=== PATIENT | male | born 1960 | race African-American/Black ===

== ENCOUNTER 2019-01-16 07:35 | Inpatient (IN) ==
[2019-01-16] MEDS ORDERED: ROCEPHIN 1 GM in NS 50 ML IV ONE (08:24)
[2019-01-16] MEDS ORDERED: VANCOMYCIN 1 GM/NS 1 GM/250 ML IVPB IV ONE (08:24)
--- NOTE | 2019-01-16 08:31 | PROVIDER DOCUMENTATION ---
HPI-Rash/Wound/ReCheck - General Chief Complaint: Rash Stated Complaint: RASH Time Seen by Provider: 01/16/19 08:19 Allergies/Adverse Reactions: Allergies Allergy/AdvReac Type Severity Reaction Status Date / Time Penicillins Allergy ANAPHYLAXIS Verified 01/16/19 07:51 Home Medications: Home Medication List Medication Instructions Recorded Confirmed Last Taken Type Sulfamethoxazole/Trimethoprim 2 ea PO BID #40 tab 01/13/19 01/16/19 01/16/19 Rx [Bactrim Ds Tablet] Albuterol Sulfate Inhaler 2 puff INH PRN PRN 01/16/19 01/16/19 01/16/19 History [Ventolin Hfa] - History of Present Illness-Dermatology Nature of Presenting Problem: had abscess in R axill drained sev weeks ago, has had some swelling, redness since, but much worse since , when seen here, got shot of clindamycin. No fever known, no other probles, except alena, redness, swelling to R arm, beginning to R mid upper arm, down to mid R forearm. Review of Systems - Adult - REVIEW OF SYSTEMS - ADULT Constitutional: reports: no symptoms reported Eyes: reports: no symptoms reported Ears, Nose, Mouth & Throat: reports: no symptoms reported Cardiovascular: reports: no symptoms reported Respiratory: reports: no symptoms reported Gastrointestinal: reports: nausea, vomiting Genitourinary: reports: no symptoms reported Musculoskeletal: reports: no symptoms reported Integumentary: reports: see HPI Neurological: reports: no symptoms reported Psychiatric: reports: no symptoms reported Endocrine: reports: no symptoms reported Hematologic/Lymphatic: reports: no symptoms reported Allergic/Immunologic: reports: no symptoms reported Past History - Adult - PAST MEDICAL HISTORY-ADULT Review of Records: reports: Medications Reviewed Major Childhood Illnesses: reports: denies history Cardiovascular: reports: HTN Respiratory: reports: COPD Gastrointestinal: reports: denies history Obstetrical/Gynecological: reports: denies history Genitourinary: reports: denies history Musculoskeletal: reports: denies history Neurological: reports: denies history Psychiatric: reports: denies history Endocrine/Immune: reports: denies history. denies: Diabetes Other Conditions: reports: denies history - PRIOR SURGERIES/PROCEDURES Surgical/Procedure History: reports: none - PRIOR HOSPITALIZATIONS Prior Hospitalizations: reports: none - IMMUNIZATION STATUS Childhood Immunizations: See Nurse Assessment Flu Vaccine: See Nurse Assessment - FAMILY HISTORY Family History: reviewed, not pertinent Physical Exam-General - PHYSICAL EXAM-ADULT Initial Vital Signs Reviewed: Yes - CONSTITUTIONAL General Appearance: appears well, alert, no apparent distress - EYES Eyes: PERRL/EOMI, pink conjunctivae - HEAD, EARS, NOSE, MOUTH & THROAT HENMT: normocephalic/atraumatic, moist mucous membranes, normal ENT inspection, pharynx normal - NECK Neck: non-tender, full range of motion, supple - RESPIRATORY Respiratory: chest non-tender, lungs clear, normal breath sounds, no pleuratic chest pain, no respiratory distress, no accessory muscle use - CARDIOVASCULAR Cardiovascular: regular rate, rhythm, no edema, no gallop - GASTROINTESTINAL (ABDOMEN) Abdominal Exam: soft, tenderness (mild epigastrum) - MUSCULOSKELETAL Back Exam: normal inspection, no CVA tenderness, no vertebral tenderness Extremity: other (erythema, swelling tender from mid upper arm, to mid frorearm. sev areas feel fluctuant) - SKIN Integumentary: normal color, normal turgor, warm/dry - NEUROLOGIC Neurologic: cell tester II-XII nml as tested, grossly normal, no motor/sensory deficits - PSYCHIATRIC Psych/Mental Status: normal mood/affect, normal thought content, normal thought process, oriented x 3 Progress - PLAN OF CARE/RESULTS Progress/Plan/Lab Results: Vital Signs - 8 hr 01/16/19 07:36 01/16/19 09:24 01/16/19 09:25 Temperature 97.6 F Pulse Rate 86 98 H 97 H Respiratory Rate 16 20 21 Blood Pressure 117/77 118/88 118/88 O2 Sat by Pulse Oximetry 98 99 99 01/16/19 09:30 01/16/19 09:45 01/16/19 10:00 Temperature Pulse Rate 94 H 97 H 97 H Respiratory Rate 19 17 19 Blood Pressure O2 Sat by Pulse Oximetry 98 100 100 01/16/19 10:15 Temperature Pulse Rate 99 H Respiratory Rate 34 H Blood Pressure O2 Sat by Pulse Oximetry 100 Laboratory Results - last 24 hr 01/16/19 01/16/19 08:35 08:35 WBC 21.23 H RBC 4.93 Hgb 14.3 Hct 39.7 L MCV 80.5 L MCH 29.0 MCHC 36.0 RDW Std Deviation 13.6 Plt Count 70 L MPV 11.1 H Immature Gran % (Auto) 11.0 H Neut % (Auto) 68.2 Lymph % (Auto) 6.0 L Emmet % (Auto) 13.7 H Eos % (Auto) 0.8 Baso % (Auto) 0.3 Immature Gran # (Auto) 2.33 H Neut # (Auto) 14.49 H Lymph # (Auto) 1.28 Emmet # (Auto) 2.90 H Eos # (Auto) 0.17 Baso # (Auto) 0.06 Sodium 135 L Potassium 4.4 Chloride 95 L Carbon Dioxide 24 L Anion Gap 16 BUN 25 H Creatinine 1.4 H Estimated GFR/1.73 m2 > 60 BUN/Creatinine Ratio 18 Glucose 119 H Calculated Osmolality 276 Calcium 9.5 Orders Category Date Time Status US NON VASC EXTREMITY LIMITED [US] Stat Exams 01/16/19 08:23 Completed BASIC METABOLIC PANEL [CHEM] Stat Lab 01/16/19 08:35 Completed CBC WITH DIFF [HEME] Stat Lab 01/16/19 08:35 Results 0.9% Sodium Chloride Inj [Ns] 1,000 ml Med 01/16/19 10:31 Active IV 999 mls/hr CefTRIAXONE [Rocephin] 1 gm Med 01/16/19 08:24 Discontinued 0.9% Sodium Chloride Inj [Ns] 50 ml IV NOW Vancomycin 1 gm/Ns Med 01/16/19 08:24 Discontinued 1 gm in 250 ml IV NOW Result Diagrams: 01/16/19 08:35 01/16/19 08:35 - CONSULTS/PCP/HOSPITALIST Notification #1 *Consult/PCP/Hospitalist*: [place] Time Discussed: 10:30 Consult Disposition: Will see in ED, Admit Departure - Departure Date of Disposition Decision: 01/16/19 Time of Disposition Decision: 10:30 DIAGNOSIS: Cellulitis of left arm, AUGUSTA (acute kidney injury) Disposition: ADMITTED INPATIENT 09 Certified Medical Emergency: Emergent Condition: Good Referrals and Follow-Ups: None,PCP [Primary Care Provider] - - Critical Care Note This patient required my direct & personal management of CC.: No Attestation - Physician/ JOSE Attestation Patient care was provided by Advanced Practice Provider:: No The physician spent face to face time with patient:: Yes Advanced Practice Provider documentation review:: Supervising physician onsite and consulted in the evaluation and care of this patient. The physician did have a face to face encounter with the patient.
[2019-01-16 09:26] LABS: AGAP 16; BUN 25 mg/dL (8-22); CALCIUM 9.5 mg/dL (8.8-10.2); CHLORIDE 95 mmol/L (98-107); COSMO 276; CREATININE 1.4 mg/dL (0.7-1.2); ESTIMATED GFR > 60; GLUCOSE 119 mg/dL (70-104); POTASSIUM 4.4 mmol/L (3.5-5.1); SODIUM 135 mmol/L (136-145); TCO2 24 mmol/L (25-35)
[2019-01-16 09:30] LABS: BASO# 0.06 X1000 (0.0-0.2); BASO% 0.3 % (0.0-0.8); EOS# 0.17 X1000 (0.0-0.7); EOS% 0.8 % (0.0-10.0); HEMATOCRIT 39.7 % (42.0-52.0); HEMOGLOBIN 14.3 g/dL (14.0-18.0); IMM GRAN# 2.33 X1000 (0.0-0.04); LYMPH# 1.28 X1000 (1.2-3.4); MCV 80.5 FL (81-99); MONO% 13.7 % (1.7-9.3); MPV 11.1 FL (7.4-10.4); NEUT# 14.49 X1000 (1.4-6.5); NEUT% 68.2 % (42.2-75.2); PLT 70 X1000 (130-400); RBC 4.93 XMIL (4.7-6.1); RDW 13.6 % (11.5-14.5); WBC 21.23 X1000 (4.8-10.8)
--- NOTE | 2019-01-16 10:23 | Diag Imaging Result Doc PS360 ---
EXAM: US NON VASC EXTREMITY LIMITED INDICATION: poss abscess TECHNIQUE: COMPARISON: None. FINDINGS: No loculated soft tissue fluid collection is identified to indicate an abscess involving the left arm. No solid masses are identified. There is a filling defect identified in the left basilic vein extending from the armpit the forearm indicating thrombus. IMPRESSION: Superficial thrombus in the left basilic vein. No sonographic evidence of abscess. Electronically signed by Yehuda Ramos 01/16/2019 10:21 AM
[2019-01-16] MEDS ORDERED: NS 1,000 ML IV ONE (10:31)
[2019-01-16 11:06] LABS: BANDS 19 % (0-1); LYMPHS 1 % (21-51); MONO 14 % (1-9); SEGS 61 % (42-75)
[2019-01-16] MEDS ORDERED: CLINDAMYCIN 600 MG/NS 600 MG/50 ML IVPB IV SCH (14:13)
[2019-01-16] MEDS ORDERED: ZOFRAN IV PRN (14:13)
[2019-01-16] MEDS ORDERED: NS 1,000 ML IV SCH (14:13)
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
[2019-01-16] MEDS ORDERED: LEVAQUIN 500 MG/D5W 500 MG/100 ML IVPB IV ONE (15:10)
[2019-01-16] MEDS: NICODERM PATCH TD SCH (15:19)
[2019-01-16 15:42] LABS: INR 1.07; PTT 28.3 Seconds (22.3-41.8)
--- NOTE | 2019-01-16 15:58 | Diag Imaging Result Doc PS360 ---
EXAM: CHEST-1 VIEW INDICATION: sepsis protocol TECHNIQUE: One view COMPARISON: 05/13/2018 FINDINGS: There is evidence of prior granulomatous disease, stable. The lungs are grossly clear. There is no discrete pleural fluid collection or pneumothorax. The cardiomediastinal silhouette and central vasculature are grossly unremarkable. IMPRESSION: No evidence of acute pathology by plain radiograph. Electronically signed by Yehuda Ramos 01/16/2019 3:56 PM
[2019-01-16] MEDS: TYLENOL PO PRN (16:22)
[2019-01-16 18:17] LABS: URINE SOURCE CLEAN CATCH
[2019-01-16 18:21] LABS: BILIRUBIN URINE SMALL (NEGATIVE); BLOOD URINE NEGATIVE (NEGATIVE); COLOR YELLOW; GLUCOSE URINE NEGATIVE (NEGATIVE); KETONE URINE NEGATIVE (NEGATIVE); LEUKOCYTES URINE NEGATIVE (NEGATIVE); NITRITE URINE NEGATIVE (NEGATIVE); PH URINE 6.5; PROTEIN URINE 70 mg/dL (NEGATIVE); SP GRAVITY URINE 1.036; TURBIDITY URINE CLEAR (CLEAR); UROBILINOGEN URINE 12 mg/dL (NORMAL)
[2019-01-16 18:23] LABS: UR EPITHELIAL CELLS <10 /HPF (<10); URINE BACTERIA NEGATIVE /HPF; URINE RBC <10 /HPF (<10); URINE WBC <10 /HPF (<10)
[2019-01-16] MEDS ORDERED: MORPHINE IV PRN ×2 (18:33→21:50)
[2019-01-16] MEDS: NORCO-7.5 PO PRN (18:54)
[2019-01-16] MEDS ORDERED: DIPRIVAN 1% ONE (20:23)
[2019-01-16] MEDS ORDERED: ROBINUL ONE (20:23)
[2019-01-16] MEDS ORDERED: XYLOCAINE-MPF 2% ONE (20:23)
[2019-01-16] MEDS ORDERED: GENTAMICIN ONE (20:28)
[2019-01-16] MEDS ORDERED: ZOFRAN ONE (20:47)
[2019-01-16] MEDS ORDERED: OFIRMEV 1000 MG/ISOTONIC SOLN 1,000 MG/100 ML BOTTLE ONE (20:47)
[2019-01-16] MEDS ORDERED: TORADOL ONE (20:47)
[2019-01-16] MEDS ORDERED: NEOSPORIN OINTMENT PACKET ONE (20:57)
--- NOTE | 2019-01-16 21:30 | Diag Imaging Result Doc PS360 ---
EXAM: ELBOW 2 VIEWS LEFT INDICATION: possible left elbow septic arthritis TECHNIQUE: 2 views COMPARISON: None. FINDINGS: There is no discrete fracture, dislocation, or significant intrinsic osseous lesion. No discrete bony erosion is appreciated. The visualized joint spaces are essentially unremarkable. There is soft tissue edema around the elbow. There is no evidence of joint effusion. IMPRESSION: Soft tissue edema but no evidence of acute osseous abnormality and no discrete joint effusion. Electronically signed by Yehuda Ramos 01/16/2019 9:28 PM
[2019-01-16] MEDS ORDERED: OXY IR PO PRN (21:49)
[2019-01-16] MEDS ORDERED: VANCOMYCIN 1 GM/NS 1 GM/250 ML IVPB IV SCH (22:00)
[2019-01-16] MEDS ORDERED: VANCOMYCIN IV PER PHARMACY MISC SCH (22:00)
[2019-01-16] MEDS ORDERED: LR 1,000 ML IV SCH (22:00)
--- NOTE | 2019-01-16 22:26 | OPERATIVE NOTE ---
PROCEDURE DATE: 01/16/2019 POSTOPERATIVE DIAGNOSIS: Left elbow and arm cellulitis with possible elbow joint infection and bursa infection. POSTOP DIAGNOSIS: Left elbow and arm cellulitis with possible elbow joint infection and bursa infection PROCEDURE: Irrigation and debridement of left elbow joint and left elbow bursa. ANESTHESIA: General. SURGEON: Juno Jay MD. JAZZ MUSICIAN: None. COMPLICATIONS: None. BLOOD LOSS: Minimal. DESCRIPTION OF PROCEDURE: Patient brought to the operative suite and placed in the supine position. After successful administration general anesthesia, incision was made overlying the lateral soft spot of the elbow dissected sharply through skin and bluntly down to the elbow joint. Once we were sure we were in the joint, there was some joint fluid there but did not appear to be frankly purulent. It was washed copiously with normal saline containing irrigant and Vashe irrigation then the incision was closed with interrupted nylon suture. Another longitudinal incision was made overlying the bursa. There was some fluid in the bursa as well but again did not appear to be overtly purulent. There was some skin slough superficially which is commonly seen with bursal infections. The bursa was copiously irrigated with normal saline containing irrigant and Vashe irrigation then it was closed with interrupted nylon suture. Sterile compressive dressing was applied. The patient tolerated the procedure well without complications. The end of the procedure all counts correct. The patient was transferred to the recovery room in stable condition. cc: Juno Jay MD
[2019-01-16] MEDS ORDERED: PNEUMOVAX 23 IM ONE (22:57)
[2019-01-16] MEDS ORDERED: VENTOLIN HFA INH PRN (23:30)
[2019-01-17] MEDS: NORCO-7.5 PO PRN (02:46)
[2019-01-17 06:37] LABS: BASO# 0.02 X1000 (0.0-0.2); BASO% 0.1 % (0.0-0.8); EOS# 0.24 X1000 (0.0-0.7); EOS% 1.6 % (0.0-10.0); HEMATOCRIT 33.4 % (42.0-52.0); HEMOGLOBIN 11.8 g/dL (14.0-18.0); IMM GRAN# 0.07 X1000 (0.0-0.04); IMM GRAN% 0.5 % (0.0-0.5); LYMPH# 0.94 X1000 (1.2-3.4); LYMPH% 6.2 % (20.5-51.1); MCH 28.6 PG (27-31); MCHC 35.3 g/dL (33-37); MCV 80.9 FL (81-99); MONO# 1.12 X1000 (0.11-0.59); MONO% 7.4 % (1.7-9.3); MPV 11.2 FL (7.4-10.4); NEUT# 12.68 X1000 (1.4-6.5); NEUT% 84.2 % (42.2-75.2); PLT 70 X1000 (130-400); RBC 4.13 XMIL (4.7-6.1); RDW 13.4 % (11.5-14.5); WBC 15.07 X1000 (4.8-10.8)
[2019-01-17 06:46] LABS: CREATININE 1.6 mg/dL (0.7-1.2); POTASSIUM 3.6 mmol/L (3.5-5.1)
[2019-01-17 07:42] LABS: BANDS 22 % (0-1); EOS 4 % (1-10); HYPOCHROM 1+; LARGE PLATELETS 1+; LYMPHS 8 % (21-51); MONO 4 % (1-9); SEGS 62 % (42-75)
[2019-01-17] MEDS ORDERED: LEVAQUIN 500 MG/D5W 500 MG/100 ML IVPB IV SCH (09:00)
[2019-01-17] MEDS: NICODERM PATCH TD SCH (09:03)
[2019-01-17] MEDS: PEPCID PO SCH (09:03)
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
--- NOTE | 2019-01-17 09:44 | HISTORY AND PHYSICAL ---
ADDENDUM I have seen and examined Mr. Azevedo today. Mr. Azevedo presents because of swelling to his left arm, which has been progressively getting worse, extending into the left elbow. He said he was here about 3 days ago for the same arm infection, and he was discharged on some oral antibiotics. It looks like he was sent home on oral Bactrim. However, he said this was really not helping, so he came back. His physical exam is remarkable for the left elbow being remarkably more swollen. It is tender. There is extension of the erythematous changes almost up to the armpit. The elbow posteriorly feels very fluctuant on palpation. I have also review his lab work. He does have leukocytosis with significant bands, that is 19% of bands. He is also thrombocytopenic. His chemistry shows renal failure. An ultrasound of his extremity shows superficial thrombosis in the left basilic vein. No sonographic evidence of abscess. ASSESSMENT: 1. Sepsis secondary to skin and soft tissue infection with possible extension to the elbow space. 2. Suspected left elbow septic arthritis with surrounding cellulitis. The patient has been started on IV antibiotics. Cultures have been done, and we will consult Orthopedics to evaluate the elbow joint. 3. Superficial left basilic vein thrombosis, noted. 4. History of alcohol and tobacco abuse. The patient has been counseled. 5. Acute renal failure. We will continue with gentle IV fluids. cc: Rajan Rodriguez MD
[2019-01-17] MEDS: ROCEPHIN 1 GM in NS 50 ML IV SCH (10:18)
[2019-01-17] MEDS: LR 1,000 ML IV SCH ×2 (11:15→19:25)
--- NOTE | 2019-01-17 12:29 | ORTHOPAEDICS PROGRESS NOTE ---
DATE: 01/17/2019 SUBJECTIVE: Brad Azevedo is a 58-year-old male who is postoperative day 1 from a left elbow irrigation and debridement. He states he is much improved as far as his elbow pain and has improved function as well. OBJECTIVE: He is a well-developed, well-nourished male. He is alert, oriented, and cooperative with exam. LABORATORY DATA: His cultures are still pending from the lab from his ID yesterday. His white count is down to 15 from 21. His Gram stains were negative. ASSESSMENT: Stable left elbow. PLAN: We are going to continue his current treatment. Dr. Nava is seeing him from an infectious disease standpoint. We will wait for the cultures to come back. cc: Juno Jay MD
--- NOTE | 2019-01-17 13:42 | PROGRESS NOTE ---
DATE: 01/17/2019 SUBJECTIVE: This morning Mr. Azevedo refers to be feeling a whole lot better than yesterday. He said after the I D was done yesterday, he feels about 80% better today. OBJECTIVE: Vitals: Blood pressure is 199/55, pulse of 100, respirations 16, temperature 98.4 degrees. On general exam, Mr. Azevedo is a 58-year-old gentleman. He is in bed. No distress. Mucosa is pink and moist. Anicteric. Acyanotic. Neck is supple. Chest: Good air entry bilateral with some distant wheezing sporadically. Cardiovascular: Regular rate and rhythm. Abdomen: Soft. Extremities: No pedal edema. The left elbow is in elastic dressing. DIAGNOSTIC STUDIES: WBC is down to 15.07, hemoglobin is 11.8, platelet count of 70,000. The patient still has 20% of bands on the peripheral smear. Chemistry is also reviewed. Creatinine is 1.6. Plasma lactate has normalized. So far the culture shows no growth from the left elbow, and no anaerobes were isolated. Review of the surgery report seems to suggest the procedure done was irrigation and debridement of left elbow joint and elbow bursa. ASSESSMENT: 1. Sepsis secondary to skin and soft tissue infection. 2. Cellulitis to left elbow. The patient had an exploratory surgery of the left elbow. It appears that the joint itself was not involved and that this was all skin and soft tissue. It does not appear that the bursa was even involved. 3. Superficial left basilic vein thrombosis. We will start the patient on anticoagulants. 4. History of alcohol and tobacco abuse. Patient has been counseled. 5. Acute renal failure. We will continue with fluids. In general, Mr. Azevedo seems clinically to be much better. His antibiotics have all been changed to IV Rocephin. We will continue the current management. We will continue with current medication. We will follow up with the patient's labs tomorrow. cc: MD ELIZABETH García
[2019-01-17] MEDS: ARIXTRA SUBQ SCH (16:57)
[2019-01-17] MEDS: TYLENOL PO PRN (20:10)
[2019-01-17] MEDS ORDERED: VANCOMYCIN 1,200 MG in NS 250 ML IV SCH (21:00)
[2019-01-18] MEDS: LR 1,000 ML IV SCH (03:53)
[2019-01-18] MEDS: TYLENOL PO PRN ×3 (03:53→18:41)
[2019-01-18 05:59] LABS: BASO# 0.04 X1000 (0.0-0.2); BASO% 0.2 % (0.0-0.8); EOS# 0.31 X1000 (0.0-0.7); EOS% 1.3 % (0.0-10.0); HEMATOCRIT 31.4 % (42.0-52.0); HEMOGLOBIN 11.1 g/dL (14.0-18.0); IMM GRAN# 0.44 X1000 (0.0-0.04); IMM GRAN% 1.8 % (0.0-0.5); LYMPH# 1.88 X1000 (1.2-3.4); LYMPH% 7.6 % (20.5-51.1); MCH 28.5 PG (27-31); MCHC 35.4 g/dL (33-37); MCV 80.7 FL (81-99); MONO# 1.24 X1000 (0.11-0.59); NEUT# 20.85 X1000 (1.4-6.5); NEUT% 84.1 % (42.2-75.2); PLT 65 X1000 (130-400); RBC 3.89 XMIL (4.7-6.1); RDW 13.5 % (11.5-14.5); WBC 24.76 X1000 (4.8-10.8)
[2019-01-18 06:32] LABS: AGAP 11; ALBUMIN 1.8 g/dL (3.5-5.0); BUN 25 mg/dL (8-22); CALCIUM 8.4 mg/dL (8.8-10.2); CHLORIDE 104 mmol/L (98-107); COSMO 276; CREATININE 1.4 mg/dL (0.7-1.2); ESTIMATED GFR > 60; GLUCOSE 95 mg/dL (70-104); PHOSPHORUS 2.9 mg/dL (2.7-4.5); POTASSIUM 4.1 mmol/L (3.5-5.1); SODIUM 136 mmol/L (136-145); TCO2 21 mmol/L (25-35)
[2019-01-18 07:56] LABS: BANDS 6 % (0-1); LYMPHS 8 % (21-51); SEGS 82 % (42-75)
[2019-01-18] MEDS ORDERED: ZYVOX PO SCH (09:00)
[2019-01-18] MEDS: PEPCID PO SCH (09:54)
[2019-01-18] MEDS: ARIXTRA SUBQ SCH (09:54)
[2019-01-18] MEDS: ROCEPHIN 1 GM in NS 50 ML IV SCH (09:55)
[2019-01-18] MEDS: NICODERM PATCH TD SCH (09:55)
--- NOTE | 2019-01-18 12:48 | INFECTIOUS DISEASE PROGRESS NO ---
DATE: 01/18/2019 PRESENT ILLNESS: The patient is status post surgery for what appears to be a left elbow cellulitis. MEDICATIONS: The patient is on p.o. Zyvox and IV Rocephin. PHYSICAL EXAMINATION: Vital Signs: Temperature is 97.8 degrees, pulse 97, respirations 18, blood pressure 112/70. General: This is a fairly healthy-appearing, middle-aged male. He is tall at 6 feet 2 inches tall, but he weighs only 131 pounds. He is in no acute distress. Head, eyes, ears, nose, and throat: He can hear my spoken words and see near objects. He does not have any white coating on his tongue. Neck: No pain with movement of his neck. Lungs: Clear to auscultation. Cardiovascular: Heart rate is regular. Abdomen: Soft and nontender. Extremities: The left arm has a large dressing around it. The dressing is intact. Neurologic: The patient is alert. He can ambulate. There is no tremor. No seizures. No loss of motor or sensory function. LAB AND X-RAY: Cultures from the patient's elbow are growing gram-positive cocci. The [place] [address], hemoglobin 11.1, and platelet count 65,000. Creatinine is 1.4. GFR is greater than 60. Blood cultures are negative. ASSESSMENT: I read Dr. Jay's operative note and discussed it with him and Dr. Rodriguez. We all feel that the patient has cellulitis of the left arm and not bursitis or osteomyelitis. PLAN: Hopefully we will have the susceptibility data back soon and we will be able to let the patient go home on oral antibiotics. I will plan on seeing the patient in the office in approximately 2 weeks. COMORBIDITIES: Patient does smoke cigarettes and he drinks alcoholic beverages and he uses marijuana. cc: Valente Nava MD
[2019-01-18] MEDS: KEFZOL 2 GM/D5W 2 GM/50 ML IVPB IV SCH ×2 (13:22→20:50)
--- NOTE | 2019-01-18 13:24 | PROGRESS NOTE ---
DATE: 01/18/2019 SUBJECTIVE: This morning Mr. Azevedo refers to be doing okay. No new complaints. He thinks his swelling of the left arm is getting better. OBJECTIVE: Vital signs: Blood pressure is 117/73, pulse of 93, respirations 20, temperature 98.3. General: Mr. Azevedo is a 58-year-old gentleman. He is in bed. He was not in any distress. Mucosa is pink and moist. Anicteric. Acyanotic. Neck: Supple. Chest: Clear to auscultation. No crepitations. No rhonchi. Cardiovascular: Regular rate and rhythm. Abdomen: Soft. Extremities: No pedal edema. Central nervous system: Patient is awake, alert, and oriented. Musculoskeletal: The left arm continues to be in sterile wrap. The swelling just medial posterior part of the arm looks a lot better today. LABORATORY DATA: WBC is up to 34.76, hemoglobin is 11.1, platelet count of 65,000. Chemistry is also reviewed. Creatinine is down to 1.4. Albumin is 1.8. ASSESSMENT: 1. Sepsis secondary to skin and soft tissue infection. 2. Cellulitis to left elbow with culture showing suspicious methicillin-resistant Staphylococcus aureus. Zyvox has been added. 3. Superficial left basilic vein thrombosis. Patient is on low-dose Arixtra. 4. History of alcohol and tobacco abuse. Patient has been counseled. 5. Acute kidney injury. We will continue with fluids. Creatinine is downward trend. PLAN: In general, Mr. Azevedo is doing a lot better. The swelling of the proximal arm seems to be getting better. I could not get to see the wound itself because the elbow is in sterile wrapping. His cultures is showing gram-positive cocci and there is a concern this could be Staph, so he is being covered with MRSA drugs. We will be pending the final ID and sensitivity to make the antimicrobial switch. cc: Rajan Rodriguez MD
--- NOTE | 2019-01-18 13:57 | ORTHOPAEDICS PROGRESS NOTE ---
DATE: 01/18/2019 SUBJECTIVE: Brad Azevedo is a 58-year-old male who is postoperative day 2 from am I and D of his left elbow. He states his elbow feels better, and he has no other new complaints. OBJECTIVE: He is a well-developed, well-nourished male. He is cooperative with the exam. His elbow does look like it is less swollen. He has improved range of motion, but he still has a significant erythema there. The erythema seems to have progressed up to his shoulder. Now, he has blistering on the back of his arm as well as medially and laterally and has some thickened areas under his skin. His white count is back up to 21,000. ASSESSMENT: Left arm cellulitis with minimal improvement. PLAN: I have a long discussion with him. I think we should keep him here until this seems to start showing some signs of improvement. I am going to re-dress his wounds and continue him on IV antibiotics. cc: Juno Jay MD
--- NOTE | 2019-01-18 14:09 | INFECTIOUS DISEASE PROGRESS NO ---
DATE: 01/18/2019 ADDENDUM: I called the micro lab and they have isolated a group A strep from the patient's arm. I am going to change the treatment to the following: Ancef 2 g IV every 8 hours, clindamycin 600 mg IV every 8 hours, and elevation of the left arm on 3 pillows. I have also requested that the nurse watch the patient during the first dose of Ancef. I also will get a CT scan of the arm and consult surgery. cc: Valente Nava MD MTDChristy
[2019-01-18] MEDS: CLINDAMYCIN 600 MG/D5W 600 MG/50 ML IVPB IV SCH ×2 (14:37→22:04)
--- NOTE | 2019-01-18 17:52 | Diag Imaging Result Doc PS360 ---
CT EXT UPPER LEFT W/O CON - 01/18/2019 INDICATION: R/O necrotizing fasciitis TECHNIQUE: CT left arm COMPARISON: None FINDINGS: There is diffuse soft tissue edema circumferentially around the left arm. The hand is mostly spared. At the distal forearm, there are a couple of very small, very superficial cutaneous hyperdensities compatible with small foreign bodies. These measure 4 mm or less. There is some trace soft tissue gas associated with the elbow joint which is probably vacuum joint phenomenon. No other soft tissue gas. IMPRESSION: 1. Extensive soft tissue edema throughout the arm, nonspecific but compatible with cellulitis. No significant soft tissue gas to indicate necrotizing fasciitis. 2. Tiny superficial cutaneous densities at the radial distal forearm suggesting small foreign bodies. This exam was performed using automated exposure control, adjustment of mA or kV according to patient size, and/or use of iterative reconstruction technique Electronically signed by Avni Whittaker 01/18/2019 5:49 PM
[2019-01-19] MEDS: KEFZOL 2 GM/D5W 2 GM/50 ML IVPB IV SCH ×3 (05:36→20:07)
[2019-01-19 05:45] LABS: BASO# 0.07 X1000 (0.0-0.2); BASO% 0.3 % (0.0-0.8); EOS# 0.21 X1000 (0.0-0.7); EOS% 0.9 % (0.0-10.0); HEMATOCRIT 33.9 % (42.0-52.0); HEMOGLOBIN 12.3 g/dL (14.0-18.0); IMM GRAN# 0.61 X1000 (0.0-0.04); IMM GRAN% 2.5 % (0.0-0.5); LYMPH# 1.79 X1000 (1.2-3.4); LYMPH% 7.2 % (20.5-51.1); MCH 29.1 PG (27-31); MCHC 36.3 g/dL (33-37); MCV 80.1 FL (81-99); MONO# 1.36 X1000 (0.11-0.59); MONO% 5.5 % (1.7-9.3); MPV 12.5 FL (7.4-10.4); NEUT# 20.66 X1000 (1.4-6.5); NEUT% 83.6 % (42.2-75.2); PLT 69 X1000 (130-400); RBC 4.23 XMIL (4.7-6.1); RDW 13.7 % (11.5-14.5)
[2019-01-19 06:06] LABS: AGAP 12; BUN 21 mg/dL (8-22); CALCIUM 8.6 mg/dL (8.8-10.2); CHLORIDE 100 mmol/L (98-107); COSMO 273; ESTIMATED GFR > 60; GLUCOSE 100 mg/dL (70-104); PHOSPHORUS 3.2 mg/dL (2.7-4.5); SODIUM 135 mmol/L (136-145); TCO2 23 mmol/L (25-35)
[2019-01-19 07:10] LABS: BANDS 10 % (0-1); LYMPHS 10 % (21-51); MONO 2 % (1-9); SEGS 78 % (42-75)
[2019-01-19 07:11] LABS: LARGE PLATELETS 1+
[2019-01-19] MEDS: PEPCID PO SCH (08:17)
[2019-01-19] MEDS: NICODERM PATCH TD SCH (08:18)
[2019-01-19] MEDS: CLINDAMYCIN 600 MG/D5W 600 MG/50 ML IVPB IV SCH (08:18)
[2019-01-19] MEDS: ARIXTRA SUBQ SCH (11:18)
--- NOTE | 2019-01-19 18:51 | PROGRESS NOTE ---
DATE: 01/19/2019 SUBJECTIVE: This morning Mr. Azevedo refers to be not doing very well. He said he has been vomiting and not tolerating his diet. However, documented that he was able to tolerate about 25% of his meals. OBJECTIVE: Vital signs: Blood pressure is 156/93, pulse is 92, respirations 18. Temperature is 99.7 degrees. General: Mr. Azevedo is a 58-year-old gentleman. He is in bed. No distress. HEENT: Mucosa is pink and moist. Anicteric. Acyanotic. Neck: Supple. Chest: Clear. Cardiovascular: Regular rate and rhythm. Abdomen: Soft. Extremities: No pedal edema. The left arm continues to be remarkably more swollen, but the redness is getting better, and the swelling is actually getting more reduced. EQUIPMENT MONITOR PHOTOTYPESETTING: Patient is awake, alert, and oriented. LABORATORY DATA: WBC is still 24.70, hemoglobin is 12.3, platelet count of 69,000. The patient still has about 10% of bands on the peripheral smear. Chemistry is all reviewed. Creatinine is down to 1.0. CT scan of the left arm did show extensive edema throughout the arm, nonspecific, compatible with cellulitis. No significant soft tissue gas to indicate necrotizing fasciitis. The patient's blood culture is showing Streptococcus pyogenes. ASSESSMENT: 1. Sepsis on presentation secondary to skin and soft tissue infection. 2. Streptococcus pyogenes cellulitis of the left elbow extending to the arm. Patient is on cefazolin. 3. Superficial left basilic vein thrombosis. Patient is on low-dose Arixtra. 4. History of alcohol and tobacco abuse before hospitalization. Patient has been counseled. 5. Acute kidney injury, resolved. PLAN: So in general, I think Mr. Azevedo is doing okay. Cultures have shown Streptococcus pyogenes. Antibiotics have been changed to cefazolin IV. He refers to not feeling that great today, so we will observe him overnight. If he starts feeling much better and he is eating and we can switch his antibiotics to oral, then we will be able to discharge him hopefully tomorrow. cc: Rajan Rodriguez MD
--- NOTE | 2019-01-19 20:56 | INFECTIOUS DISEASE PROGRESS NO ---
DATE: 01/19/2019 PRESENT ILLNESS: Mr. Azevedo has a left upper extremity cellulitis. MEDICATIONS: He is receiving Kefzol 2 g IV every 8 hours and clindamycin 600 mg IV every 8 hours. PHYSICAL EXAMINATION: Vital Signs: Temperature is 97.6 degrees, pulse rate 98, respiratory rate 14, blood pressure 137/90, O2 saturation is 98% on room air. General: This is a chronically ill- appearing, middle-aged gentleman. He is lying in the bed currently in no acute distress. HEENT: Atraumatic, normocephalic. Oral mucous membranes are pink and dry. Conjunctivae are pink. Neck: Supple. Trachea is midline. Cardiovascular: Heart rate and rhythm are regular. Normal sinus rhythm on the monitor. Respiratory: Lung sounds are clear to auscultation bilaterally. No work of breathing is noted. Abdomen: Soft, flat and tender to palpation. He is complaining of diffuse abdominal pain, which she says has been there for about 3 days. Neurologic: He is awake, alert, oriented, able to move around in the bed independently. Integumentary: The left upper extremity is erythematous with several Band-Aids in place to the elbow area as well as peeling skin noted to the posterior upper arm. LABORATORY AND X-RAY: Today his white count is 24.7, hemoglobin 12.3, platelet count 69,000, creatinine is 1. Estimated GFR is greater than 60. His left elbow has grown a group A Streptococcus pyogenes on [address] Upper extremity CT shows no significant soft tissue gas to indicate necrotizing fasciitis and is compatible with cellulitis. ASSESSMENT AND PLAN: Mr. Azevedo has been started on Ancef and clindamycin for the possibility of necrotizing fasciitis to the left upper extremity. Since it does not look like there is a necrotizing fasciitis, we will stop the clindamycin at this time, and continue Ancef as ordered. These plans have been discussed with and recommended by Dr. Nava. COMORBIDITIES: for Mr. Azevedo include cigarette smoking, polysubstance abuse and medical noncompliance. Dictated by JOSS Skinner for Valente Nava MD cc: Valente Nava MD [facility] CENTERChristy
[2019-01-20] MEDS: KEFZOL 2 GM/D5W 2 GM/50 ML IVPB IV SCH (04:01)
[2019-01-20 05:40] LABS: BASO# 0.11 X1000 (0.0-0.2); BASO% 0.5 % (0.0-0.8); EOS# 0.18 X1000 (0.0-0.7); EOS% 0.9 % (0.0-10.0); HEMATOCRIT 31.7 % (42.0-52.0); HEMOGLOBIN 11.4 g/dL (14.0-18.0); IMM GRAN# 0.63 X1000 (0.0-0.04); LYMPH# 2.61 X1000 (1.2-3.4); LYMPH% 12.6 % (20.5-51.1); MCH 28.7 PG (27-31); MCV 79.8 FL (81-99); MONO% 7.3 % (1.7-9.3); MPV 11.8 FL (7.4-10.4); NEUT# 15.65 X1000 (1.4-6.5); NEUT% 75.7 % (42.2-75.2); PLT 72 X1000 (130-400); RBC 3.97 XMIL (4.7-6.1); RDW 13.6 % (11.5-14.5); WBC 20.68 X1000 (4.8-10.8)
[2019-01-20 05:50] LABS: AGAP 10; ALBUMIN 1.9 g/dL (3.5-5.0); BUN 19 mg/dL (8-22); CALCIUM 8.3 mg/dL (8.8-10.2); CHLORIDE 101 mmol/L (98-107); COSMO 271; ESTIMATED GFR > 60; GLUCOSE 116 mg/dL (70-104); PHOSPHORUS 3.5 mg/dL (2.7-4.5); POTASSIUM 3.7 mmol/L (3.5-5.1); SODIUM 134 mmol/L (136-145); TCO2 23 mmol/L (25-35)
[2019-01-20 06:46] LABS: BANDS 3 % (0-1); BASO 1 % (0-1); LYMPHS 12 % (21-51); MONO 5 % (1-9); NRBC 1 % (0-0); SEGS 79 % (42-75)
[2019-01-20] MEDS: TYLENOL PO PRN (08:23)
[2019-01-20] MEDS: PEPCID PO SCH (08:23)
[2019-01-20] MEDS: ARIXTRA SUBQ SCH (08:24)
[2019-01-20] MEDS: NICODERM PATCH TD SCH (08:37)
[2019-01-20 12:51] VITALS: BP 126/90
--- NOTE | 2019-01-20 21:01 | INFECTIOUS DISEASE PROGRESS NO ---
DATE: 01/20/2019 ASSESSMENT AND PLAN: Both Dr. Rodriguez and I feel the patient can go home today. Dr. Rodriguez has written a prescription for Keflex 500 mg p.o. every 6 hours for 1 week. I have requested that the patient come to my office in 1 week for a followup appointment. Some of the side effects of Keflex, namely rash and diarrhea, have been explained to the patient, who agrees with treatment. I have also urged the patient to elevate his arm as much as possible. Cultures from the patient's left arm which was infected grew Streptococcus pyogenes which is group A streptococcus. The patient's CBC will be checked at his appointment at my office. cc: Valente Nava MD MTDD
--- NOTE | 2019-01-21 19:12 | DISCHARGE SUMMARY ---
ADMISSION DATE: 01/16/2019 DISCHARGE DATE: 01/20/2019 DISPOSITION: Home. FOLLOWUP: 1. Dr. Nava. 2. Dr. Jay. CONSULTATIONS DURING THIS ADMISSION: 1. Infectious Disease was consulted. Patient was seen by Dr. Nava. 2. Orthopedics was consulted. Patient was seen by Dr. Jay. INVASIVE PROCEDURES DONE DURING THIS ADMISSION: Irrigation and debridement of the left elbow joint and left elbow bursa. MICROBIOLOGY DATA OF SIGNIFICANCE: The elbow fluid grew strep pyogenes. Blood cultures were negative. ADMISSION DIAGNOSES: 1. Elbow cellulitis. 2. Leukocytosis. 3. Acute kidney injury. 4. Superficial left basilic vein. DIAGNOSES AT THE TIME OF DISCHARGE: 1. Sepsis on presentation secondary to skin and soft tissue infection. 2. Streptococcus pyogenes cellulitis of the left elbow extending to the arm. The patient is status post incision and drainage. 3. Superficial left basilic vein thrombosis noted. 4. History of alcohol use and abuse prior to hospitalization. 5. Acute kidney injury. Resolved. DISCHARGE MEDICATIONS: 1. Cephalexin 500 p.o. q.6. 2. Hydrocodone 7.5. PRESENTING COMPLAINT: Left arm and elbow edema. HISTORY OF PRESENT COMPLAINT: Mr. Azevedo is a 58-year-old, -[place] gentleman, who has a history of hypertension, polysubstance abuse, came to the emergency department because of left arm and elbow swelling. It felt warm on presentation. There was a concern of a possible abscess. He was subsequently admitted for further medical care. HOSPITAL COURSE: Mr. Azevedo was admitted to the medical floor, was started on IV broad-spectrum antibiotics, and ID and Orthopedics was consulted. The patient was evaluated by Dr. Jay. A decision was made to do an irrigation and debridement of the elbow joint. Per the report, it did appear that the joint space was involved and there was no purulence. Mr. Azevedo was therefore thought only to have a skin and soft tissue infection, which the culture came back grew as strep pyogenes. There was a concern also for a possible neck fascitis. So, a CT scan of the left arm was done, but this came back negative. During the hospital course, Mr. Azevedo continued to show steady progress. Today, he feels a whole lot better. His vitals are stable. Blood pressure is 126/90, pulse of 83, respirations 18, temperature is 98 degrees. Clinically stable, except for mild swelling on the left arm, but for the most part, it looks like the swelling is getting smaller. There is a lot of scaly lesions on it. It is less warm, less tender, and is not exuding any purulence. He is stable for discharge. He is going to follow up with the subspecialties that have been involved in his care. At the time of the discharge, there was no pending labs or imaging studies. TIME SPENT FOR DISCHARGE: 36 minutes. cc: MD Valente García MD Richard S. Sharp, MD
== END 2019-01-20 13:30 | disposition home or self-care (01) | DRG 854 ==
LOC: ED 07:35 → 4N 13:35
PROVIDERS: ATTEND Internal Medicine